=== PATIENT | male | born 1940 | race Caucasian/White ===

== ENCOUNTER 2018-09-19 11:09 | Day surgery (SDC) | payer MEDICARE, BC ==
[2018-09-19] VITALS (9 sets, daily range): BP systolic 136–179; BP diastolic 73–97; PULSE 57–75; TEMP 97.4
[~2018-09-19] VITALS: Ht 185.5 cm; Wt 95.5 kg
[2018-09-19] MEDS ORDERED: HCTZ 25MG TAB25 MG PO (11:44)
[2018-09-19] MEDS ORDERED: ZOCOR 10MG10 MG PO (11:45)
[2018-09-19] MEDS ORDERED: ZESTRIL 20MG TA20 MG PO (11:46)
[2018-09-19] MEDS ORDERED: TOPROL XL 50MG50 MG PO (11:46)
[2018-09-19] MEDS ORDERED: COUMADIN 1MG1 MG/TAB PO (11:47)
[2018-09-19] MEDS ORDERED: ASPIRIN 81M81 MG/TA2 PO (11:48)
[2018-09-19] MEDS ORDERED: EPA FISH OIL1 SGL PO (11:48)
[2018-09-19] MEDS ORDERED: LASIX 40MG TABL40 MG PO (11:48)
[2018-09-19] MEDS ORDERED: IPRATROPIUM BROM3 M1 IH (11:50)
[2018-09-19 12:33] LABS: HEMOGLOBIN 15.6 g/dl (13.5-18.0); MEAN CELL VOLUME 96 fl (80.0-100.0); MEAN CORPUSCULAR HEMOGLOBIN 33 pg (27.0-31.0); MEAN CORPUSCULAR HGB CONC 35 g/dl (33.0-37.0); MEAN PLATELET VOLUME 9.6 fl (7.4-10.4); PLATELET COUNT 220 K/mm3 (130-400); REDCELL DISTRIBUTION WIDTH-CV 12.6 % (11.5-14.5)
[2018-09-19 12:38] LABS: CALCIUM 8.8 mg/dL (8.4-10.2); CREATININE, serum 0.88 (0.66-1.25); POTASSIUM 3.8 mmol/L (3.4-5.0)
[2018-09-19 12:43] LABS: INR 1.4 (0.8-3.0); PROTHROMBIN TIME 16.1 SECONDS (9.7-12.8)
--- NOTE | 2018-09-19 13:54 | NUR ---
ALL MEDICATIONS GIVEN VORB WITH MD. SEE MERGE FOR ALL MEDICATION ADMIN TIMES. SEE MERGE FOR ALL RASS ASSESSMENTS DURING AND POST PROCEDURE.
--- NOTE | 2018-09-19 15:20 | NUR ---
PT RETURNED FROM [employer] WITH , CALL LIGHT IN REACH, PT WILL BE TRANSFERRED TO [facility] WHEN BED NUMBER IS GIVEN, AND PT BOTH UNDERSTAND, REVIEWED ACTIVITY WITH BEDREST, NOT TO BEND LEGS, LIFT HEAD WITH VERBAL UNDERSTANDING. PT TAKES JUICE, USED URINAL X1 , VOIDED 400CC. PT ALSO HAS RIGHT FEMORAL SITE FOR VENOUS SITE, AREA IS SOFT NO ACTIVITY SWELLING, OR BRUISING NOTED FROM EARLIER HEMATOMA IN [employer] REPORTED
--- NOTE | 2018-09-19 15:30 | NUR ---
Bedside report given to Mohini Cardenas, Express Unit RN at this time. Patient was transported to on the [place], hooked back up to monitoring equipment, VS stable. Patient denies any pain at this time. Visualized both right and left groin sites with RN. Right venous groin site dressing dry and intact, with slight serosangenuous drainage on dressing, site is soft, no hematoma present at this time. Left arterial groin site dressing, clean, dry, and intact. Soft with no hematoma or oozing present at this time. Pedal pulses assessed with RN, bilaterally by doppler. Bed in locked and lowest position, call light within reach. All questions addressed at this time.
--- NOTE | 2018-09-19 16:00 | NUR ---
PT CON'T SAME, BOTH FEMORAL SITES ARE SOFT, DRESSINGS DRY. CON'T TO WAIT FOR TRANSFER
--- NOTE | 2018-09-19 16:30 | NUR ---
PT C/O LOWER LIP "FEELING FULL" FELT IT LOOKED SWOLLEN, DENIES, ITCHING OR TROUBLE WITH BLEEDING, DR THORNTON CALLED AND BENADRYL 50 PO GIVEN AT 1645
--- NOTE | 2018-09-19 17:00 | NUR ---
REPORT CALLED TO [facility] FOR ROOM #[id number], SPOKE WITH JERO. EMS HERE AT 1715, SITE CHECK BEFORE TRANSFER SHOWED SOFT SWELLING TO RIGHT FEMORAL SITE, DRESSING UNCHANGED, BUT BASEBALL SIZE SWELLING NOTED, PRESSURE APPLIED BY NURSE, DR THORNTON CALLED WITH NEW ORDERS
--- NOTE | 2018-09-19 17:30 | NUR ---
MANUAL PRESSURE APPLED TO RIGHT GROIN FOR 15 MIN, SWELLING RESOLVED, LEFT FEMORAL WITH NO CHANGES, REPORT TO GENERAL LABOR ON MONITORING SITE FREQUENTLY FOR ANY ADDITIONAL SWELLING AND GILL PRESSURE, KNEE BRACES APPLIED BILATERAL ORDERED FOR TRANSFER TO HELP PT NOT TO BED KNEES IN ROUTE, CALLED ADDITIONAL REPORT TO NURSE AT [facility].
--- NOTE | 2018-09-19 18:00 | NUR ---
PT TRANSFERRED TO CART AND SITES REMAIN THE SAME, NO SWELLING NOTED. PT LEFT VIA CART WITH EMS AND PAPERWORK, PT ALSO STATES FELT "FULLNESS TO BOTTOM LIP" IS BETTER
== END 2018-09-19 18:00 ==
LOC: COL.CAR 11:09
PROVIDERS: Internal Medicine Cardiovascular Disease
DX: I25.10 Atherosclerotic heart disease of native coronary artery without angina pectoris (principal); I73.9 Peripheral vascular disease, unspecified; I27.20 Pulmonary hypertension, unspecified; I48.2 Chronic atrial fibrillation; J44.9 Chronic obstructive pulmonary disease, unspecified; I10 Essential (primary) hypertension; I34.9 Nonrheumatic mitral valve disorder, unspecified; Z79.01 Long term (current) use of anticoagulants
CPT/HCPCS: J1644; J2250; J3010; Q9967